=== PATIENT | male | born 1945 | race Asian ===

== ENCOUNTER 2018-01-27 01:07 | Emergency (ER) | payer OTHER ==
[~2018-01-27] VITALS: Ht 165.1 cm; Wt 74.8 kg
[2018-01-27 01:13] VITALS: Ht 165.1 cm; Wt 74.8 kg
[2018-01-27 05:10] VITALS: BP 158/88
== END 2018-01-27 05:10 | disposition home or self-care (01) ==
LOC: ED 01:07
DX: S46.912A Strain of unspecified muscle, fascia and tendon at shoulder and upper arm level, left arm, initial encounter (principal); S20.219A Contusion of unspecified front wall of thorax, initial encounter; V89.2XXA Person injured in unspecified motor-vehicle accident, traffic, initial encounter; Y93.I9 Activity, other involving external motion; Y92.488 Other paved roadways as the place of occurrence of the external cause; Y99.8 Other external cause status
CPT/HCPCS: J1885; Q0092